=== PATIENT | female | born 1980 | race Caucasian/White ===

== ENCOUNTER 2017-09-08 06:17 | Day surgery (SDC) | payer OTHER ==
[2017-09-08] MEDS ORDERED: LR 1,000 ML IV ×2 (07:45→10:45)
[2017-09-08] MEDS ORDERED: fentaNYL 100 MCG/2 ML INJECTION (J3010) As Ordered (09:09)
[2017-09-08] MEDS ORDERED: MIDAZOLAM INJ 2 MG/2 ML VIAL (J2250) As Ordered (09:09)
[2017-09-08] MEDS ORDERED: PROPOFOL 200 MG/20 ML VIAL As Ordered (09:12)
[2017-09-08] MEDS ORDERED: LIDOCAINE 2% INJ 100 MG/5 ML SDV (FOR ANES.) As Ordered (09:12)
[2017-09-08] MEDS ORDERED: ONDANSETRON 4MG/2ML VIAL (J2405) As Ordered (10:04)
[2017-09-08] MEDS ORDERED: dexameTHASONE 4 MG/ML 1ML VIAL (J1100) As Ordered (10:05)
[2017-09-08] MEDS ORDERED: ONDANSETRON 4MG/2ML VIAL (J2405) IV (10:45)
[2017-09-08] MEDS ORDERED: NORCO, ANEXSIA 5/325MG TABLET (HYDROcodone/ACETAMINOPHEN) PO (10:45)
[2017-09-08] MEDS ORDERED: PERCOCET 5MG/325MG TAB PO ×2 (10:45)
== END 2017-09-08 11:06 | disposition home or self-care (01) ==
LOC: M SDC 06:17
DX: N20.0 Calculus of kidney (principal); R35.0 Frequency of micturition; I10 Essential (primary) hypertension; J45.909 Unspecified asthma, uncomplicated; T88.59XD Other complications of anesthesia, subsequent encounter; Z79.899 Other long term (current) drug therapy; Z87.440 Personal history of urinary (tract) infections; Z90.710 Acquired absence of both cervix and uterus; Z87.891 Personal history of nicotine dependence
CPT/HCPCS: 50590

== ENCOUNTER → 2017-09-27 | Outpatient (CLI) | payer OTHER | LOC: M SMT 14:09 | DX: Z87.442 Personal history of urinary calculi (principal); Z96.0 Presence of urogenital implants | CPT/HCPCS: 74018 ==